=== PATIENT | male | born 1945 | race Caucasian/White ===

== ENCOUNTER 2022-12-25 13:44 | Outpatient (CLI) | payer MEDICARE, SELFPAY ==
--- NOTE | ~2022-12-25 | US_ITS ---
EXAMINATION: US arterial ankle brachial ind DATE: 12/25/2022 14:48 INDICATION: Peripheral arterial disease. TECHNIQUE: Segmental pressures and plethysmographic and Doppler waveforms of the brachial and lower e xtremity arteries were obtained. COMPARISON: None. FINDINGS: Right brachial artery pressure is 110 mm Hg. The left brachial artery pressure was not measured. The right ankle-brachial index (DIEGO) is 1.25 (normal >= 0.9-1.0). The right great toe-brachial index (TBI) is 0.62 (normal >= 0.65). Arterial Doppler waveforms are biphasic at the ankle. The left DIEGO is 1.37. The left TBI is 0.77. Arterial Doppler waveforms are biphasic at the ankle. IMPRESSION: 1. Mildly decreased right TBI and normal right DIEGO, consistent with right-sided arterial occlusive di sease. 2. No significant left-sided arterial occlusive disease. Reviewed, dictated and finalized at location E. TRIC SIGN WIRER IMPRESSION: 1. Mildly decreased right TBI and normal right DIEGO, consistent with right-sided arterial occlusive disease. 2. No significant left-sided arterial occlusive disease.
== END 2022-12-25 13:45 | disposition home or self-care (01) ==
PROVIDERS: PCP Internal Medicine; Visit Provider Internal Medicine
DX: I73.9 Peripheral vascular disease, unspecified (principal)
CPT/HCPCS: 93922

== ENCOUNTER 2024-09-15 10:33 | Outpatient (CLI) | payer MEDICARE, SELFPAY ==
--- NOTE | ~2024-09-15 | XR_ITS ---
EXAM: XR wrist RT min 3V, XR hand RT min 3V DATE: 09/15/2024 10:51 HISTORY: Fall onto outstretched hand, Rt. wrist pain x1 day . COMPARISON: None available. FINDINGS: Decreased mineralization. No fracture or dislocation. No lytic or blastic lesion. Scapholu cookie widening. Radial-lunate narrowing. Old ulnar styloid fracture. Chondrocalcinosis. Mild scattered degenerative changes. No erosion or periosteal change. Soft tissues within normal limits. 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 Old ulnar styloid fracture. 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 Reviewed, dictated and finalized at location K. 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 Old ulnar styloid fracture. 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
--- OUTSIDE RECORDS SUMMARY | 2024-09-15 10:39 | XMS_ITS ---
Author Name [facility] [place] [facility] [place] Address [address] [place] [address] Care Team Providers Care Briquette Maker Name Role Phone CAMERON DELGADO Primary Care Provider Unavailabl e Insurance Providers: All historical and current Section Date Range: From patient's date of to the date document was created. This section includes the names of all active insurance providers for the patient. Insurance Provider Type of Coverage Plan Name Start of Policy Coverage End of Policy Coverage Group Number Member ID Insurance Provider's Telephone Number Policy Rice's Name Patient's Relationship to Policy Rice [employer] [facility] (WNR) MEDICARE ADVANTAGE [facility] (WNR) Feb 15, 2023 [id number] FAREED [employer] O[employer] PATIENT [employer] [facility] (WNR) MEDICARE ADVANTAGE [facility] (WNR) Feb 15, 2023 [id number] FAREED [employer] O[employer] PATIENT Selected Encounter This section includes the information on record at [place] for the Encounter. Date/Time Encounter Type Encounter Description Reason Provider Source May 30, 2024 02:00 PM OFF/OP CONSLTJ NEW/EST HI 55 CIED DEVICES ICD-10-CM R00.0 Tachycardia, unspecified JOHN JONES IHDanielle Encounter Template Text not used by [facility] Assessments - Encounter Diagnoses This section includes the primary and secondary diagnoses documented for the Encounter. Date/Time Primary/Secondary Diagnosis Diagnosis Name Provider Source May 30, 2024 02:54 PM PRIMARY Tachycardia, unspecified JOHN JONES [facility] Plan of Treatment: Future Appointments (+ 6 months) and Future Tests (+/- 45 days) The Plan of Treatment section includes future care activities for the patient [facility] [place] [facility] This section includes future appointments and future orders which are active, pending or scheduled. Future Appointments This section includes appointments that were scheduled to occur 6 months from the date of the Encounter, up to a maximum of 20 appointments. The data comes from all [facility]. Appointment Date/Time Appointment Type Appointme nt Facility Name Oct 17, 2024 10:30 AM AMBULATORY - NONE [facility] Vital Signs: All taken on the encounter date This section contains inpatient and outpatient Vital Signs collected on the date of the Encounter. Date/Time Temperature Pulse Blood Pressure Respiratory Rate SP02 Pain Height Weight Body Mass Index Source May 30, 2024 02:16 PM 65 131/80 97 [facility] Encounter Notes: All associated encounter notes This section contains the clinical notes associated to the Encounter. Date/Time Encounter Note(s) Provider Source May 30, 2024 02:45 PM ELECTROPHYSIOLOGY CONSULT: LOCAL TITLE: CLINICAL CARDIAC ELECTROPHYSIOLOGY CONSULT [facility] STANDARD TITLE: ELECTROPHYSIOLOGY CONSULT DATE OF NOTE: MAY 30, 2024@14:45 ENTRY DATE: MAY 30, 2024@14:45:28 AUTHOR: JOHN JONES EXP COSIGNER: URGENCY: STATUS: COMPLETED CARDIAC ELECTROPHYSIOLOGY OUTPATIENT CONSULTATION HISTORY: The patient is a 79-year-old man with history of hypertension, hyperlipidemia, bifascicular block, and likely atrial tachycardia who was referred by Dr. Polanco. He first saw Dr. Polanco in 01/2024 for possible atrial fibrillation however this EKG that was referred to them was not atrial fibrillation. He had a recent stress testing which did not show any ischemia. He did tell Dr. Polanco that he reports occasional palpitations before me he states he does not really feel any palpitations. He had a Holter monitor done in 01/2024 which showed rare episodes of SVT AT lasting about a minute. These were asymptomatic. Most of symptom his symptoms were sinus rhythm. He then saw Dr. Polanco in 04/2024 and the EKG from that visit was personally reviewed and is most consistent with atrial tachycardia at 125 bpm though sinus tachycardia cannot be ruled out. A beta-latesha was started at that time. Since that time he has done well. He denies any palpitations to me and is able to do his ADLs without any problems. His EKG today shows sinus rhythm with right bundle branch block and a left anterior fascicular block. He denies any syncope or presyncope. ROS- Unless otherwise stated, all ROS has been reviewed and is negative for presenting complaint. CURRENT MEDICATIONS: Active Outpatient Medications (excluding Supplies): Issue Date Status Last Fill Active Outpatient Medications Refills Expiration 1) LISINOPRIL 40MG TAB Qty: 45 for 90 days Sig: ACTIVE Issue: 10/15/23 TAKE ONE-HALF TABLET BY MOUTH ONCE A DAY Refills: 1 Last : 04/05/24 *NOTE DOSE DECREASE* Expr : 10/15/24 Indication: FOR HIGH BLOOD PRESSURE 2) METOPROLOL SUCCINATE 50MG SA TAB Qty: 45 for ACTIVE Issue: 04/21/24 90 days Sig: TAKE ONE-HALF TABLET BY MOUTH Refills: 3 Last : 04/23/24 ONCE A DAY SWALLOW WHOLE, DO NOT CRUSH OR Expr : 04/22/25 CHEW (TABLETS MAY BE CUT IN HALF). Indication: FOR PALPITATIONS 3) ROSUVASTATIN CA 10MG TAB Qty: 45 for 90 days ACTIVE Issue: 01/21/24 Sig: TAKE ONE-HALF TABLET BY MOUTH EVERY Refills: 2 Last : 04/18/24 EVENING Expr : 01/21/25 Indication: FOR HIGH CHOLESTEROL 4) SILDENAFIL CITRATE 100MG TAB Qty: 9 for 90 ACTIVE Issue: 03/17/24 days Sig: TAKE ONE-HALF TABLET BY MOUTH ONE Refills: 0 Last : 03/26/24 HOUR PRIOR TO SEXUAL ACTIVITY (TAKE 60 Expr : 06/15/24 MINUTES PRIOR TO SEXUAL ACTIVITY) - LIMIT 6 DOSES PER 30 DAYS Indication: FOR ERECTILE DYSFUNCTION Start Date Active Non-VA Medications Status Stop Date 1) Non-VA ASPIRIN 81MG EC TAB SiMG BY ACTIVE MOUTH ONCE A DAY 2) Non-VA BETAMETHASONE DIPROPIONATE 0.05% ACTIVE CREAM Sig: SPARINGLY TO AFFECTED AREA(S) THREE TIMES A DAY NEEDED 3) Non-VA CETIRIZINE HCL 10MG TAB SiMG BY ACTIVE MOUTH ONCE A DAY NEEDED 4) Non-VA CHOLECALCIF 25MCG (D3-1,000UNIT) TAB ACTIVE SiMCG BY MOUTH ONCE A DAY 8 Total Medications Medication List Reconciliation: Current medication list was reviewed with the patient and/or caregiver and compared to current list of medications in [facility]. The medicaton list was updated to reflect any changes. The importance of medication managment was explained and patient and/or caregiver was receptive and verbalized understanding. Allergies:DEMEROL, CONTRAST MEDIA EXAM: Vital Signs: Pulse: 65 (05/30/2024 14:16) BP: 131/80 (05/30/2024 14:16) RESP: 18 (04/21/2024 13:19) G- Patient A&Ox3, NAD DATA: 05/2024 EKG-sinus rhythm, right bundle branch block, left anterior fascicular block 04/2024 EKG-personally reviewed, likely atrial tachycardia at 125 bpm due to P wave morphology, cannot rule out sinus tachycardia 02/07 holter: Normal sinus rhythm with RBBB at baseline 5 patient triggers but no symptoms reported. These were associated with sinus tachycardia, PVC. 5% PVC burden including NSVT's longest upto 3 beats. Short runs of SVT, longest episode lasting 165 beats at 135 bpm No long pauses. Stress Test 01/2024: Reviewed with patient today. ECG without diagnostic ischemia. Nuclear MPI: 1. Small severe partially reversible defect in the apex and distal inferior wall which appears better on prone images demonstrating normal contractility. This is favored to represent artifact versus apical thinning, rather than infarct. Cannot completely exclude a small area of ischemia in the distal inferior wall. 2. The findings in the proximal to mid inferior wall most likely represent diaphragmatic attenuation. Cannot completely exclude a small area of ischemia. 3. Normal LVEF of 62%. ECHO 01/2024: Normal systolic function, biatrial enlargement, no significant valvular disease. I reviewed his EKG at his 05/09 clinic visit which shows sinus vs atrial tachycardia (more likely given p wave morphology) at 125 bpm. Labs reviewed ASSESSMENT/PLAN: The patient is a 79-year-old man a history of hypertension, hyperlipidemia, bifascicular block, and likely paroxysmal atrial tachycardia that is relatively asymptomatic. He has done very well since especially since starting the beta- latesha. The rate of the atrial tachycardia is about 125 bpm and given this I do not feel he needs anticoagulation. However if he develops A-fib, he would obviously need to be started on it. Given the asymptomatic nature and his normal EF I do not think we need to pursue this further unless symptoms change or his rhythm changes. He will continue his metoprolol and he will follow-up with electrophysiology as needed. I do not feel he needs further Holter monitoring given the brevity of his symptoms and his monitor in January and his lack of symptoms. Thank you for letting me participate in the case of this very pleasant patient. Please contact me if you have any questions. John Jones M.D. Clinical Cardiac Electrophysiology This note was transcribed using voice detection software. Please excuse any errors. Health Maintenance All patients are counseled on the risks of smoking at every visit including patients with no history of smoking in order to dissuade them from starting the use of tobacco products; former smokers to minimize recidivism of nicotine dependence; and current smokers in an effort to help them cease the use of nicotine products. Where relevant [age between 50-60-years and history of smoking], we and/or the PCP will obtain an abdominal ultrasound to screen for the possibility of an abdominal aortic aneurysm and ABIs to screen for occult PAD. When completed, the results will be found in [facility]. Where relevant all echocardiograms (including transthoracic and transesophogeal echocardiograms), laboratory results, imaging results and procedure results that have been ordered have results communicated to the patient by myself, surrogate and/or the PCP. When completed, the results will be in the appropriate area in [facility] or [facility]. # HEALTH PROMOTION/HEALTH MAINTENANCE & EDUCATION DISEASE: Discussed treatment options & counseled on exacerbating factors. # DIAGNOSTIC TESTING AND LABORATORY DATA: Pertinent labs and diagnostic tests (both normal and abnormal) are included above and were reviewed and discussed with the patient within 7-days of the test and during this visit. - DISEASE: Coordinated care; discussed treatment options, & counseled on ` exacerbating factors. - Encouraged participation in regular exercise program 3-5 days/week - Maximize risk factor reduction & lifestyle modifications i.e. BP <130/80 and LDL goal <70 - Discussed at length about lifestyle modifications in regard to diet, exercise, and medication compliance. -Assessed smoking habits and whether actively using tobacco products or a past history of nicotine dependence, smoking cessation strategies were reinforced. - In patients with a history of CHF, HAYDER/ARB use is considered and held when contraindications such as allergies, renal function preclude use. If not mentioned in the above note, these assessments are detailed in prior cardiology notes. The patient verbalized understanding of information regarding: labs, meds, and plans for care. Reinforcement is indicated. # MEDICATION RECONCILIATION: - All cardiac medications were reconciled during the visit. - All patients with an EF </= 40% are considered for Hayder inhibitors or ARBs except when contraindicated due to intolerance/allergy, hypotension, or renal disease. Documentation is found in the historical record if not repeated in this note. - All patients with an EF </= 40% are considered for beta blockers and aspirin unless contraindicated due to intolerance/allergy, hypotension, bradycardia, or bleeding risk. Documentation is found in the historical record if not repeated in this note. - Anticoagulation therapy was discussed with all patients in the setting of atrial flutter/fibrillation and held in cases where the complications of bleeding (e.g., fall risk) outweighs the risk of stroke. All patients on anticoagulation medications are counseled on bleeding risks and the warning signs of a stroke or TIA. - Except where mentioned or restricted, the PCP may renew the cardiac medications. - Other listed profile meds will continue as directed by the PCP (primary provider). Thank you for allowing us to participate in this patient's care. Total time spent = 60 minutes /es/ JOHN JONES MD CLINICAL CARDIAC BULLET MAKER Signed: 05/30/2024 14:54 JOHN JONES [facility]
--- OUTSIDE RECORDS SUMMARY | 2024-09-15 10:39 | XMS_ITS | Continuity of Care Document ---
Author Organization [facility] Address [address] [place] [address] Phone Care Team Providers Care Nanotechnologist Name Role Phone Opal PAREKHHADNY CUNNINGHAM, [place] Unavailable Unavailab le Allergies, Adverse Reactions, Alerts Substance Reaction Status Criticality No Known Allergies Active No Inform ation Medications Medication Instructions Dosage Effective Dates (start - stop) Status Comments Keflex 500 mg capsule take 1 tab po Q 8 hours - Active aspirin 81 mg tablet,delayed release take 1 tablet by oral route every day 81 MG - Active Boostrix Tdap 2.5 Lf unit-8 mcg-5 Lf/0.5 mL intramuscular syringe - Active lisinopril 30 mg tablet - Ac tive ketoconazole 2 % topical cream - Active mupirocin 2 % topical ointment - Active azithromycin 250 mg tablet - Active benzonatate 100 mg capsule - Active fluticasone 50 mcg/actuation nasal spray,suspension - Active betamethasone, augmented 0.05 % topical ointment - Active hydrocodone 7.5 mg-acetaminophen 325 mg tablet - Active meloxicam 15 mg tablet - Act ok cyclobenzaprine 10 mg tablet - Active lisinopril 20 mg tablet - Ac tive Zyrtec 10 mg capsule - Active Benadryl 25 mg capsule take 2 capsule by oral route every 4 - 6 hours as needed 50 MG - Active Procedures Procedure Date X-ray Exam Hip Unilat With Pelvis When P erf 2-3 View Office/outpatient visit,[place] 2018 Office/outpatient visit,[place] 2018 X-ray Exam Hip Unilat With Pelvis When P erf 2-3 View Global/Postop followup visit X-ray Exam Hip Unilat With Pelvis When P erf 2-3 View Global/Postop followup visit X-ray Exam Hip Unilat With Pelvis When P erf 2-3 View Office/outpatient visit,[place] 2018 Advance Directives Directive Yes / No Effective Date File Name No Information Encounters Encounter Description Practice Location Reason(s) For Visit Diagnoses Date Provider Providers Copied on Encounter Office/outpat ient visit,[place] [facility], [address], [id number], [phone] [employer] [facility] Right Hip (chief complaint) Presence of right artificial hip joint 9 Opal Onofre. [facility] [address], [id number] , . tel: [phone] Referring Provider: [place] Joe, [facility] [address], [address]. [phone] Office/outpat ient visit,[place] [facility], [address], [id number], [place] [phone] [employer] [facility] Right Hip (chief complaint) Presence of right artificial hip joint 9 Opal Onofre. [address] [place] [address], [id number] , [place]. tel: [phone] Referring Provider: [place] Joe, [address], [address]. tel:[phone] [employer] [facility], [address], [id number], [place] tel:[phone] [facility] right hip (chief complaint) Presence of right artificial hip joint 9 Opal Onofre. [address] [facility], [place] [address], [place], [place], [id number] , [place]. tel: [phone] Referring Provider: [place] Joe, [address] [facility] [address] [facility], [place], [address]. tel:[phone] [facility], [address] [place] [address], [place], [place], [id number], [place] tel:[phone] [facility] Presence of right artificial hip joint 9 Opal Onofre. [address] [facility], [place] [address], [place], [place], [id number] , [place]. tel: [phone] [facility], [address], [id number], [place] tel:[phone] [facility] right hip (chief complaint) Presence of right artificial hip joint 9 Opal Onofre. [address] [facility], [place] [address], [place], [place], [id number] , [place]. tel: [phone] Referring Provider: [place] Joe, [address] [facility] [address] [facility], [place], [address]. 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 [place] [address], [place] [address], [place], [place], [id number] , [place]. tel: [phone] Office/outpat ient visit,new, mod [facility], [address], [id number], [place] [phone] [facility] Hip Implant Squeking Rt Hip (chief complaint) Pain in right hipPresence of right artificial hip jointMech loosening of internal right hip prosthetic joint, subs 9 Joon Hemphill er. [address] [facility], [address], [place], [place], [id number] , [place]. tel: [phone] Referring Provider: Jas Dupree MD D, [address] [facility] [address], [place], [address]. tel:[phone] [facility], [address] [facility] [address], [place], [id number], [place] tel:[phone] [facility] No Information 9 Joon Hemphill er. [address] [facility], [address], [place], [place], [id number] , [place]. tel: [phone] Family History Family Member Type Diagnosis Age At Onset No Information Payers Payer name Insurance type Covered republican ID Authortelmaa tifransisca(s) Medicare [place] WPS Part B [id number] [facility] [id number] Social History Type Description Quantity Date Captured Comments Alcohol Use Details Unknown Caffeine Use Details Unknown Tobacco Use Status Current non-smoker Smoking Status Unknown if ever smoked Non-Smoking Tobacco Use Details : No Details Available : No Details Available Sex Male Vital Signs Date / Time: Height Weight BMI Pulse Rate Blood Pressure Temperature Respiratory Rate Body Surface Area Head Circumference Head Circ. Percentile Wt./Dewayne. Percentile BMI percentile Pulse Ox Inhaled Ox 9:52 AM 65.00 in 96.162 kg (212.00 lbs) 35.2 8 kg/m jazminer (2) Chief Complaint And Reason For Visit From encounter dated '09/19/2018 10:20'. Right Hip (chief complaint). Description: Brian is a pleasant 73 year old gentleman who presents to the office today for ongoing follow-up of his right posterior total hip arthroplasty revision, date of surgery 04/29/2018. He is finished with physical therapy and feels that it went well. He does practice the exercises that he was taught in physical therapy on a semi regular basis. He has had complete resolution of the suture abscess at the incision site. He endorses no pain the right hip at today's office visit. He does have pain in the right buttock, that he indicates is baseline, that is rated at a 3/10 with a dull, aching, intermittent nature that is well manged with the use of over the counter pain medications and rest. He is ambulating without assistive device at today's visit. Reason For Referral Reason For Referral No Information Plan Of Treatment Date Type Action Status Referral Ordered: X-ray Exam Hip Unilat With Pelvis When Perf 2-3 View RT hip ordered Referral Ordered: X-ray Exam Hip Unilat With Pelvis When Perf 2-3 View RT ordered History Of Present Illness Encounter Date Complaint History Of Prese nt Illness Right Hip Brian is a pleasa nt 73 year old gentleman who presents to the office today for ongoing follow-up of his right posterior total hip arthroplasty revision, date of surgery 04/29/2018. He is finished with physical therapy and feels that it went well. He does practice the exercises that he was taught in physical therapy on a semi regular basis. He has had complete resolution of the suture abscess at the incision site. He endorses no pain the right hip at today's office visit. He does have pain in the right buttock, that he indicates is baseline, that is rated at a 3/10 with a dull, aching, intermittent nature that is well manged with the use of over the counter pain medications and rest. He is ambulating without assistive device at today's visit. Right Hip Richie is a plea mallika 73 year old female who presents to the office today for skin check of his right posterior total hip arthroplasty revision, date of surgery 04/29/2018. He indicates that he has developed a spot on his incision and is concerned. Denies drainage, redness, or pain at the incision site. Denies pain in the lateral thigh and groin. He is having pain in the buttocks that he attributes to his ongoing lumbago with sciatic nerve involvement. He is finished with physical therapy and feels that it went very well. He is ambulating without assistive device at today's office visit. right hip Richie is a javier tena 73-year-old gentleman who presents to the office today for evaluation of his right posterior total hip arthroplasty revision, date of surgery 04/29/2018. He is maintaining posterior hip precautions, and is questioning how long he needs to maintain those. He is participating in physical therapy and feels that it is going very well. He endorses having no pain while at rest, and a pain level of 4 out of 10 with a dull, intermittent nature exacerbated by certain movements, the pain is located at the lateral incision area, and well-managed with the use of positional changes, massage, and tmpw-zdp-dwcbuzc pain medications. He is ambulating with the use of a walker at today's office visit, and accompanied to the visit by his . 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 He has had a 25% weightbearing restriction in the right lower extremity, and indicates compliance with this restriction. He has been participating in physical therapy, and feels that it is going very well. He is taking aspirin 81 mg twice per day for DVT prophylaxis. He is maintaining posterior hip precautions. He endorses having no pain at rest, but indicates that he does have pain that will go up to a 7 or 8 at the highest with overexertion and physical therapy, but usually maintains a 324 with ambulation, and is stabbing and intermittent in nature starting in the buttocks radiating around the lateral thigh and into the mid anterior thigh. Denies groin pain at this time. Denies fevers, chills, malaise, or generalized feelings of illness. He is ambulating with a walker at today's visit. Hip Implant Squeking Rt He aparicio is a 73-year-old gentleman who presents today for evaluation of his right hip replacement. He had recently undergone a head and liner exchange by Dr. padilla at [facility]. His surgery occurred on June 30, 2017. He had some ostial lysis surrounding his Violeta hip system. He underwent a head and liner exchange with a Trilogy acetabular liner of 40 mm for a 60 mm outer diameter cup. He also underwent a versus femoral head, 40 mm tall, 14 taper, +3.5 neck length. He had been doing well but then he developed some squeaking in his hip. He reports his pain as a 2/10. He has some popping and grinding. His pain is worse with bending climbing stairs descending stairs, sitting, standing and walking. Pain is better with resting. He is 5 foot 5 and weighs 212 pounds. He is had bilateral total hip replacements done some time ago. He has no history of infection in the hip. He reports uncomplicated surgery with no wound healing or antibiotics or washouts required. Functional Status Date Functional Assessmen t No Information Instructions Date Instruction Additional Infor jose juan Verbal consent was o btained for removal of sutures. The patient was standing for the procedure. The sutures were removed without incident, and the procedure was well tolerated by the patient. Related to Presence of right artificial hip joint Assessments Type Assessment Date assessment Presence of right artificial hip joint impression Radiologic review an d physical exam demonstrate a stable right total hip arthroplasty revision, date of surgery 04/29/2018. No suspicion of mechanical loosening or septic joint at this time. The patient has no restrictions to his activities, but was advised that extremes of position could cause him a dislocation event, and those positions were discussed with him. The patient was advised to maintain an adequate level of physical activity. He may use rest, elevation, ice, and hbvs-esp-suagveg nonsteroidal anti-inflammatory type medications and pvmu-xsq-rhkxsdu pain medications for pain and inflammation control in the right hip. He was advised to use compression stockings for edema control in the bilateral lower legs, and advised to follow-up with his primary care physician for evaluation and treatment of bilateral lower extremity edema. No suspicion of DVT at this time. The patient was advised that for the next 2 years he will need an antibiotic prior to any dental visits, and our office will gladly call those in for him. The patient demonstrates appropriate understanding of the diagnosis and plan of care at this time and we will see him back in 6 months Patient Care Teams Name Effective Dates (start - stop) Status Members No Information
--- OUTSIDE RECORDS SUMMARY | 2024-09-15 10:39 | XMS_ITS | Clinical Summary ---
Author Organization [facility] Address [address] [place] [address] Phone Care Team Providers Care Contact Lens Fitter Name Role Phone Avtar Liu MD Primary Care Provider [phone] Allergies Active Allergy Reactions Criticality Noted Date Comments Iodine Unknown 05/07/2018 Medications Lisinopril 30 MG Tablet Take 30 mg by mouth daily. Active Ibuprofen 200 MG Capsule Take 1 Cap by mouth every 6 hours as needed for Pain. Active diphenhydrAMINE (BENADRYL) 25 MG Tablet Take 50 mg by mouth nightly as needed for Sleep. Active cetirizine (ZYRTEC) 10 MG Tablet Take 10 mg by mouth Daily as needed for Allergies. Active Aspirin 81 MG Tablet Take 81 mg by mouth daily. Active Social History Tobacco Use Types Packs/Day Years Used Date Smoking Tobacco: Never Assessed Sex and Gender Information Value Date Recorded Sex Assigned at Not on file Legal Sex Male 9:42 AM CDT Gender Identity Not on file Sexual Orientation Not on file Last Filed Vital Signs Vital Sign Reading Time Taken Comments Blood Pressure 128/70 05/30/2018 9:19 AM CDT Pulse 88 05/30/2018 9:19 AM CDT Temperature 36.7 C (98.1 F) 05/30/2018 9:19 AM CDT Respiratory Rate 16 05/30/2018 9:19 AM CDT Oxygen Saturation 98% 05/30/2018 9:19 AM CDT Inhaled Oxygen Concentration - - Weight 92.1 kg (203 lb) 05/19/2018 1:11 PM CDT Height 165.1 cm (5' 5) 05/10/2018 2:20 PM CDT Body Mass Index 33.78 05/10/2018 2:20 PM CDT Plan of Treatment Health Maintenance Due Date Last Done Comments Hepatitis C Virus (HCV) Screening 1945 TdaP Immunization 1945 Pneumococcal Immunization (5 0+ years) (1 of 1 - PCV) 1997 Zoster Immunization (1 of 2) 1997 Respiratory Syncytial Virus (RSV) Immunization (Adult) (1 - 1-dose 75+ series) 2022 SARS-COV-2 Immunization (4 - season) 2023 11/13/2020, 04/10/2020, 03/20/2020 Influenza Immunization (#1) 2024 12/10/2016 Hepatitis B Immunization Aged Out No longer eligible based on patient's age to complete this topic Human Papillomavirus (HPV) Immunization Aged Out No longer eligible b ased on patient's age to complete this topic Meningococcal Immunization (ACWY) Aged Out No longer eligible b ased on patient's age to complete this topic Rotavirus Immunization Aged Out No lo nger eligible based on patient's age to complete this topic Insurance MEDICARE [facility] Advance Directives * Full Code (Latest Code Status on File) Date Activated Date Inactivated Comments 05/12/2018 8:23 AM Care Teams Contact Lens Fitter Relationship Specialty [place] [address] [place] [address] [place] [address] PCP - General Family Medicine 05/06/18
--- OUTSIDE RECORDS SUMMARY | 2024-09-15 10:39 | XMS_ITS | Clinical Summary ---
Author Organization [facility] Address [address] [place] [address] Care Team Providers Care Funeral Professional Name Role Phone Bienvenido Chris MD Primary Care Provider [phone] Allergies Active Allergy Reactions Criticality Noted Date Comments Iodinated Contrast Media Unknown 05/21/2016 Meperidine Unknown 05/21/2016 Medications No known medications Social History Tobacco Use Types Packs/Day Years Used Date Smoking Tobacco: Never Smokeless Tobacco: Never Tobacco Cessation:Counseling Given: Not Answered Alcohol Use Standard Drinks/Week Comments Not Currently 23.3 (1 standard dri nk = 0.6 oz pure alcohol) drinks a fith of burbin a week. 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 Gender Identity Not on file Sexual Orientation Not on file Last Filed Vital Signs Vital Sign Reading Time Taken Comments Blood Pressure 120/70 05/21/2016 4:06 PM CDT Pulse 68 05/21/2016 4:06 PM CDT Temperature - - Respiratory Rate - - Oxygen Saturation - - Inhaled Oxygen Concentration - - Weight 86.2 kg (190 lb) 02/04/2024 10:06 AM MACHINE FOLDER Height 165.1 cm (5' 5) 02/04/2024 10:06 AM MACHINE FOLDER Body Mass Index 31.62 02/04/2024 10:06 AM MACHINE FOLDER Plan of Treatment Health Maintenance Due Date Last Done Comments Hepatitis C 1963 Annual Medicare Wellness Visit 02/12/2012 COVID-19 Vaccine ( season) 2024 12/04/2023, 12/07/2022, 02/15/2022, Additional history exists DTaP, Tdap and Td Vaccines (2 - Td or Tdap) 06/13/2030 06/13/2020, 08/15/2005 Zoster Vaccines Completed 12/20/2020, 05/17, 05/21/2011 Pneumococcal Vaccine: 50+ Years Completed 06/24/2021, 12/08/2019 RSV Immunization or 60+ Years Completed 05/04/2023 Meningococcal B Vaccine Aged Out No l onger eligible based on patient's age to complete this topic Meningococcal Vaccine Aged Out No janice colton eligible based on patient's age to complete this topic RSV Immunizations Under 20 Months Aged Out No longer eligible based on patient's age to complete this topic Insurance [employer] Care Teams Funeral Professional Relationship Specialty Start Date End Date Bienvenido Chris MD [address] [place] [address] PCP - General INTERNAL MEDICINE 11/09/22
--- OUTSIDE RECORDS SUMMARY | 2024-09-15 10:39 | XMS_ITS | Continuity of Care Document ---
Author Name [facility] Organization [facility] Care Team Providers Care Axle Inspector Name Role Phone [facility] Unavailable Unavailable Problems Combined list of problems from Department of Defense and Veterans Affairs facilities. It does not include entries that were removed or entered in error. Problem Status Onset Date Problem Type Date of Resolution Comments Source Abnormal ECG Active Condition [facility] Allergic Rhinitis ([facility] [id number]) Active Condition [facility] Chronic Kidney Disease, Unspecified (ICD-9-CM 585.9) Active Condition [facility] Chronic sinusitis (ICD-9-CM 473.9) Active Condition [facility] Erectile Dysfunction ([facility] [id number]) Active Condition [facility] History of chronic renal impairment Active Condition [facility] History of nephrolithiasis Active Condition [facility] HTN - Hypertension (SCT [id number]) Active Condition [facility] Hyperlipidemia Active Condition [facility] Hypertension * (ICD-9-CM 401.9) Active Condition [facility] Impaired glucose tolerance Active Condition [facility] Obesity ([facility] [id number]) Active Condition [facility] Obesity * (ICD-9-CM 278.00) Active Condition [facility] Past history of procedure Active Condition Dec 07, 2019 Entered By: ENRICO RASMUSSEN Comment: 1998 total right hip arthroplastyOct 2019 Entered By: ENRICO RASMUSSEN Comment: 2000 total left hip arthroplastyOct 2019 Entered By: ENRICO RASMUSSEN Comment: 1979 vasectomyOct 2019 Entered By: ENRICO RASMUSSEN Comment: lithotripsy, snare removal renal stonesOct 2019 Entered By: ENRICO RASMUSSEN Comment: 2017 right hip athroplasty revisionOct 2019 Entered By: ENRICO RASMUSSEN Comment: 2018 right hip arthroplasty revisionOct 2019 Entered By: ENRICO RASMUSSEN Comment: 2017 right ear non-melanoma skin cancer excision [facility] Vitamin D Deficiency ([facility] [id number]) Active Condition [facility] Diagnosis: ICD-10-CM R00.0 Tachycardia, unspecified Active Diagnosis [facility] Diagnosis: ICD-10-CM R94.31 Abnormal electrocardiogram [ECG] [EKG] Active Diagnosis [facility] Diagnosis: ICD-10-CM I48.91 Unspecified atrial fibrillation Active Diagnosis [facility] Diagnosis: ICD-10-CM I10 Essential (primary) hypertension Active Diagnosis [facility] Diagnosis: ICD-10-CM U07.1 COVID-19 Active Diagnosis [facility] Diagnosis: ICD-10-CM Z23 Encounter for immunization Active Diagnosis [facility] Medications Combined list of outpatient medications from Department of Defense and [facility] Affairs facilities.Medications provided include 1) outpatient medications from the last 15 months, and 2) patient-reported medications. Medication Details Route Status Patient Instructions Prescription Expires Prescription Number Last Dispense Date Ordering Provider Order Date Order Qty Source ASPIRIN 81MG TAB,EC TAKE ONE TABLET BY MOUTH ONCE A DAY ORAL ACTIVE VALERY,VICT OR 2019 [facility] ASPIRIN 81MG TAB,EC TAKE ONE TABLET BY MOUTH EVERY DAY ORAL ACTIVE ROSALINA TRINIDAD 2009 [facility] BETAMETHASO NE DIPROPIONAT E 0.05% CREAM,TOP APPLY SPARINGL Y TO AFFECTED AREA(S) THREE TIMES A DAY NEEDED [place] L ACTIVE PACE,VICT OR 2019 [facility] CETIRIZINE HCL 10MG TAB TAKE ONE TABLET BY MOUTH ONCE A DAY NEEDED ORAL ACTIVE PACE,VICT OR 2019 [facility] CHOLECALCIF EDUARDO 25MCG (1,000UNIT) TAB TAKE THREE TABLETS BY MOUTH ONCE A DAY ORAL ACTIVE PACE,VICT OR 2020 [facility] DIPHENHYDRA MINE HCL 50MG CAP TAKE 1 CAPSULE BY MOUTH AT BEDTIME NEEDED ORAL ACTIVE ROSALINA TRINIDAD 2009 [facility] LISINOPRIL 20MG TAB TAKE ONE AND ONE-HALF TABLETS BY MOUTH ONCE A DAY FOR HEART OR BLOOD PRESSURE ORAL DISCONT INUED BY CHANEL Luis 04/06/2024 [id number] BOLAND, TTLISA 2023 135 [facility] LISINOPRIL 20MG TAB TAKE ONE-HALF TABLET BY MOUTH DAILY ORAL ACTIVE ROSALINA TRINIDAD 2009 [facility] LISINOPRIL 40MG TAB TAKE ONE-HALF TABLET BY MOUTH ONCE A DAY FOR HIGH BLOOD PRESSURE *NOTE DOSE DECREASE * ORAL ACTIVE 10/15/2024 [id number] SMITH STERLING 2023 45 [facility] METOPROLOL SUCCINATE 50MG TAB,SA TAKE ONE-HALF TABLET BY MOUTH ONCE A DAY FOR PALPITAT IONS SWALLOW WHOLE, DO NOT CRUSH OR CHEW (TABLETS MAY BE CUT IN HALF). ORAL ACTIVE 04/22/2025 [id number] Pelon REY 2024 45 [facility] ROSUVASTATI N CA 10MG TAB TAKE ONE-HALF TABLET BY MOUTH EVERY EVENING FOR HIGH CHOLESTE ROL ORAL ACTIVE 01/21/2025 [id number] Pelon REY 2023 45 [facility] SILDENAFIL CITRATE 100MG TAB TAKE ONE-HALF TABLET BY MOUTH ONE HOUR PRIOR TO SEXUAL ACTIVITY FOR ERECTILE DYSFUNCT ION (TAKE 60 MINUTES PRIOR TO SEXUAL ACTIVITY ) - LIMIT 6 DOSES PER 30 DAYS ORAL ACTIVE 06/13/2025 [id number] SMITH STERLING 2024 9 [facility] SILDENAFIL CITRATE 100MG TAB TAKE ONE-HALF TABLET BY MOUTH ONE HOUR PRIOR TO SEXUAL ACTIVITY FOR ERECTILE DYSFUNCT ION (TAKE 60 MINUTES PRIOR TO SEXUAL ACTIVITY ) - LIMIT 6 DOSES PER 30 DAYS ORAL DISCONT INUED 06/15/2024 [id number] SMITH STERLING 2024 9 [facility] SILDENAFIL CITRATE 100MG TAB TAKE ONE-HALF TABLET BY MOUTH ONE HOUR PRIOR TO SEXUAL ACTIVITY FOR ERECTILE DYSFUNCT ION (TAKE 60 MINUTES PRIOR TO SEXUAL ACTIVITY ) - LIMIT 6 DOSES PER 30 DAYS ORAL DISCONT INUED 03/20/2024 [id number] SMITH STERLING 2023 9 [facility] SILDENAFIL CITRATE 100MG TAB TAKE ONE-HALF TABLET BY MOUTH ONE HOUR PRIOR TO SEXUAL ACTIVITY FOR ERECTILE DYSFUNCT ION (TAKE 60 MINUTES PRIOR TO SEXUAL ACTIVITY ) - LIMIT 6 DOSES PER 30 DAYS ORAL DISCONT INUED 01/13/2024 [id number] SMITH STERLING 2023 9 [facility] SILDENAFIL CITRATE 100MG TAB TAKE ONE-HALF TABLET BY MOUTH ONE HOUR PRIOR TO SEXUAL ACTIVITY FOR ERECTILE DYSFUNCT ION (TAKE 60 MINUTES PRIOR TO SEXUAL ACTIVITY ) - LIMIT 6 DOSES PER 30 DAYS ORAL DISCONT INUED 10/11/2023 [id number] ME KYA TTISA 2023 9 [facility] Allergies, Adverse Reactions, Alerts Combined list of allergies from Department of Defense and Veterans Affairs facilities. It does not include entries that were removed or entered in error. Substance Category Reaction Severity Reaction type Status Date Reported Comments Source CONTRAST MEDIA Propensity to adverse reactions to drug (finding) Eruption active 0 [facility] DEMEROL Propensity to adverse reactions to drug (finding) Bradycardia active 0 [facility] Immunizations Combined list of available immunizations from the Department of Defense and Veterans Affairs facilities. Immunization Series Date Given Administered By Site Reaction Lot Number CVX Code Drug Furniture Technician Status Comments Source RSV, BIVALENT, PROTEIN SUBUNIT RSVPREF, DILUENT RECONSTITUTED , 0.5 ML, PF 1 2023 KADY ÁLVAREZ LEFT DELTO ID [id number] 305 complet ed [facility] COVID-19 (PFIZER), MRNA, LNP-S, PF, GENI-SUCROSE, 30 MCG/0.3 ML (AGES 12+ YEARS) 1 2022 309 complet ed HISTORICA L INFORMATI ON - FROM OTHER REGISTRY, [facility] INFLUENZA VACCINE, QUADRIVALENT, ADJUVANTED 1 2022 205 complet ed HISTORICA L INFORMATI ON - FROM OTHER [facility], [facility] COVID-19 ([facility]), MRNA, LNP-S, BIVALENT, PF, 30 MCG/0.3 ML DOSE 5 2022 300 complet ed HISTORICA L INFORMATI ON - FROM OTHER REGISTRY, [facility] INFLUENZA, HIGH-DOSE, QUADRIVALENT 3 2021 197 complet ed HISTORICA L INFORMATI ON - FROM OTHER REGISTRY, [facility] INFLUENZA, UNSPECIFIED FORMULATION 2021 88 complet ed HISTORICA L INFORMATI ON - FROM PATIENT'S RECALL, [facility] COVID-19 ([facility]), MRNA, LNP-S, PF, 30 MCG/0.3 ML DOSE 4 2021 208 complet ed HISTORICA L INFORMATI ON - FROM PATIENT'S WRITTEN RECORD, Lot#: [id number] [facility] COVID-19 ([facility]), MRNA, LNP-S, PF, 30 MCG/0.3 ML DOSE, GENI-SUCROSE (AGES 12+ YEARS) 4 2021 217 complet ed HISTORICA L INFORMATI ON - FROM OTHER REGISTRY, [facility] PNEUMOCOCCAL CONJUGATE PCV20, POLYSACCHARID E [id number] CONJUGATE, ADJUVANT, PF 2021 NONE 216 complet ed Completed Series, [facility] ZOSTER RECOMBINANT 2 2020 187 complet ed [facility] COVID-19 ([facility]), MRNA, LNP-S, PF, 30 MCG/0.3 ML DOSE 3 2020 208 complet ed HISTORICA L INFORMATI ON - FROM OTHER REGISTRY, [facility] INFLUENZA, HIGH-DOSE, QUADRIVALENT 2 2020 197 complet ed HISTORICA L INFORMATI ON - FROM OTHER REGISTRY, [facility] COVID-19 ([facility]), MRNA, LNP-S, PF, 30 MCG/0.3 ML DOSE 3 2020 208 complet ed [facility] INFLUENZA, UNSPECIFIED FORMULATION 2020 88 complet ed [facility] TDAP 2020 115 complet ed [facility] ZOSTER RECOMBINANT 1 2020 187 complet ed [facility] COVID-19 ([facility]), MRNA, LNP-S, PF, 30 MCG/0.3 ML DOSE 2 2020 208 complet ed [facility] COVID-19 ([facility]), MRNA, LNP-S, PF, 30 MCG/0.3 ML DOSE 1 2020 208 complet ed [facility] INFLUENZA, UNSPECIFIED FORMULATION 2019 88 complet ed [facility] PNEUMOCOCCAL POLYSACCHARID E [id number] 2019 33 complet ed [facility] INFLUENZA, SEASONAL, INJECTABLE 1 2016 141 complet ed HISTORICA L INFORMATI ON - FROM OTHER REGISTRY, [facility] INFLUENZA, UNSPECIFIED FORMULATION 2011 88 complet ed Right Deltoid 0.5ml [facility] ZOSTER LIVE 2011 121 complet ed [facility] INFLUENZA, UNSPECIFIED FORMULATION 2010 88 complet ed Right Deltoid 0.5ml IM [facility] INFLUENZA, UNSPECIFIED FORMULATION 2009 88 complet ed Right Deltoid 0.5ml IM [facility] TD(ADULT) UNSPECIFIED FORMULATION 2005 139 complet ed [facility] Results Combined list of recent chemistry, hematology and other laboratory results from Department of Defense and Veterans Affairs, ranging from 15 months to all on record, depending upon the facility. Order Name Results Value Reference Range Date Interpretation Specimen Comments Source LIPID PANEL (STL) CHOLESTEROL [MASS/VOLUM E] IN SERUM OR PLASMA 115 mg/dL 0 - 200 04/26 Specimen Type: PLASMA No comment entered. Ordering Provider: MAMI REY Report Released Date/Time: Apr 21, 2024 02:01 PM Reporting Lab: [facility] [address] [facility] [address] Performing Lab: [address] [address] [facility] LIPID PANEL (STL) TRIGLYCERID E [MASS/VOLUM E] IN SERUM OR PLASMA 66 mg/dL 0 - 150 04/26 Specimen Type: PLASMA No comment entered. Ordering Provider: MAMI REY Report Released Date/Time: Apr 21, 2024 02:01 PM Reporting Lab: [address] [address] Performing Lab: [address] [address] [facility] LIPID PANEL (STL) CHOLESTEROL IN LDL [MASS/VOLUM E] IN SERUM OR PLASMA BY CALCULATION 51 mg/dL 04/26 Specimen Type: PLASMA No comment entered. Ordering Provider: MAMI REY Report Released Date/Time: Apr 21, 2024 02:01 PM Reporting Lab: [address] [address] Performing Lab: [address] [address] [facility] LIPID PANEL (STL) CHOLESTEROL IN HDL [MASS/VOLUM E] IN SERUM OR PLASMA 51 mg/dL 40 04/26 Specimen Type: PLASMA No comment entered. Ordering Provider: MAMI REY Report Released Date/Time: Apr 21, 2024 02:01 PM Reporting Lab: [address] [address] Performing Lab: [address] [address] [facility] HEPATIC FUNTION PANEL (STL) PROTEIN [MASS/VOLUM E] IN SERUM OR PLASMA 7.2 g/dL 6 - 8.6 04/26 Specimen Type: PLASMA No comment entered. Ordering Provider: MAMI REY Report Released Date/Time: Apr 21, 2024 04:14 PM Reporting Lab: [address] [address] Performing Lab: [place] [address] [facility] [phone] [place] [address] HEPATIC FUNTION PANEL (STL) ALBUMIN [MASS/VOLUM E] IN SERUM OR PLASMA 4.2 g/dL 3.4 - 5 04/26 Specimen Type: PLASMA No comment entered. Ordering Provider: MAMI REY Report Released Date/Time: Apr 21, 2024 04:14 PM Reporting Lab: [place] [address] [address] Performing Lab: [address] HEPATIC FUNTION PANEL (STL) BILIRUBIN.T OTAL [MASS/VOLUM E] IN SERUM OR PLASMA 0.7 mg/dL 0.2 - 1.2 04/26 Specimen Type: PLASMA No comment entered. Ordering Provider: MAMI REY Report Released Date/Time: Apr 21, 2024 04:14 PM Reporting Lab: [place] [phone] Performing Lab: [place] [address] [address] [facility] HEPATIC FUNTION PANEL (STL) ALKALINE PHOSPHATASE [ENZYMATIC ACTIVITY/VO LUME] IN SERUM OR PLASMA 67 U/L 40 - 150 04/26 Specimen Type: PLASMA No comment entered. Ordering Provider: MAMI REY Report Released Date/Time: Apr 21, 2024 04:14 PM Reporting Lab: [place] [phone] Performing Lab: [address] [address] [facility] HEPATIC FUNTION PANEL (STL) ASPARTATE AMINOTRANSF ERASE [ENZYMATIC ACTIVITY/VO LUME] IN SERUM OR PLASMA 20 U/L 5 - 34 04/26 Specimen Type: PLASMA No comment entered. Ordering Provider: MAMI REY Report Released Date/Time: Apr 21, 2024 04:14 PM Reporting Lab: [address] [address] Performing Lab: [address] [address] [facility] HEPATIC FUNTION PANEL (STL) ALANINE AMINOTRANSF ERASE [ENZYMATIC ACTIVITY/VO LUME] IN SERUM OR PLASMA 13 U/L 8 - 40 04/26 Specimen Type: PLASMA No comment entered. Ordering Provider: MAMI REY Report Released Date/Time: Apr 21, 2024 04:14 PM Reporting Lab: [address] [address] Performing Lab: [phone] [place] [address] HEPATIC FUNTION PANEL (STL) BILIRUBIN.C ONJUGATED [MASS/VOLUM E] IN SERUM OR PLASMA 0.3 mg/dL 0 - 0.5 04/26 Specimen Type: PLASMA No comment entered. Ordering Provider: MAMI REY Report Released Date/Time: Apr 21, 2024 04:14 PM Reporting Lab: [address] [address] Performing Lab: [address] [phone] [place] [address] BASIC METABOLIC PANEL CREATININE [MASS/VOLUM E] IN SERUM OR PLASMA 0.90 mg/dL 0.7 - 1.3 10/27 Specimen Type: PLASMA Comment: No hemolysis noted. Ordering Provider: SMITH OSPINA Report Released Date/Time: Oct 22, 2023 03:53 PM Reporting Lab: [address] [address] Performing Lab: [address] [phone] [place] [address] BASIC METABOLIC PANEL UREA NITROGEN [MASS/VOLUM E] IN SERUM OR PLASMA 17.1 mg/dL 9.0 - 25.0 10/27 Specimen Type: PLASMA Comment: No hemolysis noted. Ordering Provider: SMITH OSPINA Report Released Date/Time: Oct 22, 2023 03:53 PM Reporting Lab: [address] [address] Performing Lab: [address] [phone] [place] [address] BASIC METABOLIC PANEL GLUCOSE [MASS/VOLUM E] IN SERUM OR PLASMA 98 mg/dL 72 - 99 10/27 Specimen Type: PLASMA Comment: No hemolysis noted. Ordering Provider: SMITH OSPINA Report Released Date/Time: Oct 22, 2023 03:53 PM Reporting Lab: [address] [address] Performing Lab: [address] [address] [facility] BASIC METABOLIC PANEL SODIUM [MOLES/VOLU ME] IN SERUM OR PLASMA 142 meq/L 136 - 145 10/27 Specimen Type: PLASMA Comment: No hemolysis noted. Ordering Provider: SMITH OSPINA Report Released Date/Time: Oct 22, 2023 03:53 PM Reporting Lab: [address] [address] Performing Lab: [address] [address] [facility] BASIC METABOLIC PANEL POTASSIUM [MOLES/VOLU ME] IN SERUM OR PLASMA 4.3 meq/L 3.5 - 5 10/27 Specimen Type: PLASMA Comment: No hemolysis noted. Ordering Provider: SMITH OSPINA Report Released Date/Time: Oct 22, 2023 03:53 PM Reporting Lab: [address] [address] Performing Lab: [address] [address] [facility] BASIC METABOLIC PANEL CHLORIDE [MOLES/VOLU ME] IN SERUM OR PLASMA 109 meq/L 98 - 107 10/27 H Specimen Type: PLASMA Comment: No hemolysis noted. Ordering Provider: SMITH OSPINA Report Released Date/Time: Oct 22, 2023 03:53 PM Reporting Lab: [address] [address] Performing Lab: [address] [address] [facility] BASIC METABOLIC PANEL CARBON DIOXIDE, TOTAL [MOLES/VOLU ME] IN SERUM OR PLASMA 26 meq/L 22 - 31 10/27 Specimen Type: PLASMA Comment: No hemolysis noted. Ordering Provider: SMITH OSPINA Report Released Date/Time: Oct 22, 2023 03:53 PM Reporting Lab: [address] [address] Performing Lab: [address] [address] [facility] BASIC METABOLIC PANEL CALCIUM [MASS/VOLUM E] IN SERUM OR PLASMA 9.2 mg/dL 8.4 - 10.4 10/27 Specimen Type: PLASMA Comment: No hemolysis noted. Ordering Provider: SMITH OSPINA Report Released Date/Time: Oct 22, 2023 03:53 PM Reporting Lab: [address] [address] Performing Lab: [address] [address] [facility] BASIC METABOLIC PANEL GLOMERULAR FILTRATION RATE/1.73 SQ M.PREDICTED [VOLUME RATE/AREA] IN SERUM, PLASMA OR BLOOD BY CREATININE- BASED FORMULA (CKD-EPI 2020) 88.5 60 10/27 Specimen Type: PLASMA Comment: No hemolysis noted. Ordering Provider: SMITH OSPINA Report Released Date/Time: Oct 22, 2023 03:53 PM Reporting Lab: [address] [address] Performing Lab: [facility] [address] [address] [facility] COMPREHEN SIVE METABOLIC PANEL CREATININE [MASS/VOLUM E] IN SERUM OR PLASMA 1.45 mg/dL 0.7 - 1.3 10/14 H Specimen Type: PLASMA Comment: No hemolysis noted. Ordering Provider: SMITH OSPINA Report Released Date/Time: Oct 15, 2023 09:55 AM Reporting Lab: [facility] [address] [place] [address] Performing Lab: [address] [phone] [place] [address] COMPREHEN SIVE METABOLIC PANEL UREA NITROGEN [MASS/VOLUM E] IN SERUM OR PLASMA 27.2 mg/dL 9.0 - 25.0 10/14 H Specimen Type: PLASMA Comment: No hemolysis noted. Ordering Provider: SMITH OSPINA Report Released Date/Time: Oct 15, 2023 09:55 AM Reporting Lab: [facility] [address] [place] [address] Performing Lab: [address] [address] [facility] COMPREHEN SIVE METABOLIC PANEL GLUCOSE [MASS/VOLUM E] IN SERUM OR PLASMA 109 mg/dL 72 - 99 10/14 H Specimen Type: PLASMA Comment: No hemolysis noted. Ordering Provider: SMITH OSPINA Report Released Date/Time: Oct 15, 2023 09:55 AM Reporting Lab: [facility] [address] [place] [phone] Performing Lab: [address] [address] [facility] COMPREHEN SIVE METABOLIC PANEL SODIUM [MOLES/VOLU ME] IN SERUM OR PLASMA 141 meq/L 136 - 145 10/14 Specimen Type: PLASMA Comment: No hemolysis noted. Ordering Provider: SMITH OSPINA Report Released Date/Time: Oct 15, 2023 09:55 AM Reporting Lab: [facility] [address] [address] Performing Lab: [facility] [address] [facility] [address] [facility] COMPREHEN SIVE METABOLIC PANEL POTASSIUM [MOLES/VOLU ME] IN SERUM OR PLASMA 5.9 meq/L 3.5 - 5 10/14 H Specimen Type: PLASMA Comment: No hemolysis noted. Ordering Provider: SMITH OSPINA Report Released Date/Time: Oct 15, 2023 09:55 AM Reporting Lab: [address] [address] Performing Lab: [address] [address] [facility] COMPREHEN SIVE METABOLIC PANEL CHLORIDE [MOLES/VOLU ME] IN SERUM OR PLASMA 108 meq/L 98 - 107 10/14 H Specimen Type: PLASMA Comment: No hemolysis noted. Ordering Provider: SMITH OSPIAN Report Released Date/Time: Oct 15, 2023 09:55 AM Reporting Lab: [address] [address] Performing Lab: [place] [address] [address] [facility] COMPREHEN SIVE METABOLIC PANEL CARBON DIOXIDE, TOTAL [MOLES/VOLU ME] IN SERUM OR PLASMA 25 meq/L 22 - 31 10/14 Specimen Type: PLASMA Comment: No hemolysis noted. Ordering Provider: SMITH OSPINA Report Released Date/Time: Oct 15, 2023 09:55 AM Reporting Lab: [address] [address] Performing Lab: [address] [address] [facility] COMPREHEN SIVE METABOLIC PANEL CALCIUM [MASS/VOLUM E] IN SERUM OR PLASMA 10.3 mg/dL 8.4 - 10.4 08/30 /2024 Specimen Type: PLASMA Comment: No hemolysis noted. Ordering Provider: SMITH OSPINA Report Released Date/Time: Oct 15, 2023 09:55 AM Reporting Lab: [facility] [address] [place] [address] Performing Lab: [facility] [address] [place] [address] [facility] COMPREHEN SIVE METABOLIC PANEL PROTEIN [MASS/VOLUM E] IN SERUM OR PLASMA 7.2 g/dL 6 - 8.6 10/14 Specimen Type: PLASMA Comment: No hemolysis noted. Ordering Provider: SMITH OSPINA Report Released Date/Time: Oct 15, 2023 09:55 AM Reporting Lab: [facility] [address] [place] [address] Performing Lab: [address] [address] [place] [address] COMPREHEN SIVE METABOLIC PANEL ALBUMIN [MASS/VOLUM E] IN SERUM OR PLASMA 4.4 g/dL 3.4 - 5 10/14 Specimen Type: PLASMA Comment: No hemolysis noted. Ordering Provider: SMITH OSPINA Report Released Date/Time: Oct 15, 2023 09:55 AM Reporting Lab: [facility] [address] [place] [address] Performing Lab: [facility] [address] [place] [phone] [place] [address] COMPREHEN SIVE METABOLIC PANEL BILIRUBIN.T OTAL [MASS/VOLUM E] IN SERUM OR PLASMA 0.6 mg/dL 0.2 - 1.2 10/14 Specimen Type: PLASMA Comment: No hemolysis noted. Ordering Provider: SMITH OSPINA Report Released Date/Time: Oct 15, 2023 09:55 AM Reporting Lab: [facility] [address] [place] [address] Performing Lab: [facility] [address] [place] [address] [facility] COMPREHEN SIVE METABOLIC PANEL ALKALINE PHOSPHATASE [ENZYMATIC ACTIVITY/VO LUME] IN SERUM OR PLASMA 66 U/L 40 - 150 10/14 Specimen Type: PLASMA Comment: No hemolysis noted. Ordering Provider: SMITH OSPINA Report Released Date/Time: Oct 15, 2023 09:55 AM Reporting Lab: [address] [address] Performing Lab: [address] [id number] [place] [address] COMPREHEN SIVE METABOLIC PANEL ASPARTATE AMINOTRANSF ERASE [ENZYMATIC ACTIVITY/VO LUME] IN SERUM OR PLASMA 16 U/L 5 - 34 10/14 Specimen Type: PLASMA Comment: No hemolysis noted. Ordering Provider: SMITH OSPINA Report Released Date/Time: Oct 15, 2023 09:55 AM Reporting Lab: [address] [phone] Performing Lab: [address] [id number] [place] [address] COMPREHEN SIVE METABOLIC PANEL ALANINE AMINOTRANSF ERASE [ENZYMATIC ACTIVITY/VO LUME] IN SERUM OR PLASMA 12 U/L 8 - 40 10/14 Specimen Type: PLASMA Comment: No hemolysis noted. Ordering Provider: SMITH OSPINA Report Released Date/Time: Oct 15, 2023 09:55 AM Reporting Lab: [address] [phone] Performing Lab: [address] [phone] [facility] COMPREHEN SIVE METABOLIC PANEL GLOMERULAR FILTRATION RATE/1.73 SQ M.PREDICTED [VOLUME RATE/AREA] IN SERUM, PLASMA OR BLOOD BY CREATININE- BASED FORMULA (CKD-EPI 2020) 49.9 60 10/14 Specimen Type: PLASMA Comment: No hemolysis noted. Ordering Provider: SMITH OSPINA Report Released Date/Time: Oct 15, 2023 09:55 AM Reporting Lab: [address] [address] Performing Lab: [address] [phone] [place] [address] TSH (MA-PB) THYROTROPIN [UNITS/VOLU ME] IN SERUM OR PLASMA 2.006 u[IU]/ mL 0.47 - 5 10/14 Specimen Type: SERUM Comment: No hemolysis noted. Ordering Provider: SMITH OSPINA Report Released Date/Time: Oct 15, 2023 09:55 AM Reporting Lab: [place] [phone] Performing Lab: [address] CBC LEUKOCYTES [#/VOLUME] IN BLOOD BY AUTOMATED COUNT 8.1 10*3/u L 3.6 - 11.2 10/14 Specimen Type: BLOOD No comment entered. Ordering Provider: SMITH OSPINA Report Released Date/Time: Oct 15, 2023 09:55 AM Reporting Lab: [address] [address] Performing Lab: [address] [phone] CBC ERYTHROCYTE S [#/VOLUME] IN BLOOD BY AUTOMATED COUNT 4.61 10*6/u L 4.10 - 5.70 10/14 Specimen Type: BLOOD No comment entered. Ordering Provider: SMITH OSPINA Report Released Date/Time: Oct 15, 2023 09:55 AM Reporting Lab: [address] [address] Performing Lab: [place] [id number] CBC HEMOGLOBIN [MASS/VOLUM E] IN BLOOD 15.1 g/dL 13.1 - 16.8 10/14 Specimen Type: BLOOD No comment entered. Ordering Provider: SMITH OSPINA Report Released Date/Time: Oct 15, 2023 09:55 AM Reporting Lab: [address] [address] Performing Lab: [address] [address] [facility] CBC HEMATOCRIT [VOLUME FRACTION] OF BLOOD 46.2 38.2 - 48.4 10/14 Specimen Type: BLOOD No comment entered. Ordering Provider: SMITH OSPINA Report Released Date/Time: Oct 15, 2023 09:55 AM Reporting Lab: [address] [address] Performing Lab: [address] [address] [facility] CBC MCV [ENTITIC VOLUME] BY AUTOMATED COUNT 100.2 fL 80.0 - 100.0 10/14 H Specimen Type: BLOOD No comment entered. Ordering Provider: SMITH OSPINA Report Released Date/Time: Oct 15, 2023 09:55 AM Reporting Lab: [address] [phone] Performing Lab: [address] [address] [facility] CBC MCH [ENTITIC MASS] BY AUTOMATED COUNT 32.8 pg 27.0 - 34.0 10/14 Specimen Type: BLOOD No comment entered. Ordering Provider: SMITH OSPINA Report Released Date/Time: Oct 15, 2023 09:55 AM Reporting Lab: [address] [address] Performing Lab: [address] [address] [facility] CBC MCHC [MASS/VOLUM E] BY AUTOMATED COUNT 32.7 g/dL 33.0 - 36.0 10/14 L Specimen Type: BLOOD No comment entered. Ordering Provider: SMITH OSPINA Report Released Date/Time: Oct 15, 2023 09:55 AM Reporting Lab: [address] [place] [address] Performing Lab: [facility] [address] [place] [phone] [facility] CBC PLATELETS [#/VOLUME] IN BLOOD BY AUTOMATED COUNT 246 10*3/u L 150 - 400 10/14 Specimen Type: BLOOD No comment entered. Ordering Provider: SMITH OSPINA Report Released Date/Time: Oct 15, 2023 09:55 AM Reporting Lab: [facility] [address] [place] [phone] Performing Lab: [address] [address] [facility] CBC PLATELET MEAN VOLUME [ENTITIC VOLUME] IN BLOOD BY AUTOMATED COUNT 9.8 fL 7.5 - 11.2 10/14 Specimen Type: BLOOD No comment entered. Ordering Provider: SMITH OSPINA Report Released Date/Time: Oct 15, 2023 09:55 AM Reporting Lab: [facility] [address] [place] [phone] Performing Lab: [address] [address] [facility] CBC ERYTHROCYTE DISTRIBUTIO N WIDTH [RATIO] BY AUTOMATED COUNT 12.7 11.8 - 15.1 10/14 Specimen Type: BLOOD No comment entered. Ordering Provider: SMITH OSPINA Report Released Date/Time: Oct 15, 2023 09:55 AM Reporting Lab: [facility] [address] [place] [phone] Performing Lab: [facility] [address] [facility] CBC LYMPHOCYTES /100 LEUKOCYTES IN BLOOD BY AUTOMATED COUNT 36 10/14 Specimen Type: BLOOD No comment entered. Ordering Provider: SMITH OSPINA Report Released Date/Time: Oct 15, 2023 09:55 AM Reporting Lab: [facility] [address] [place] [phone] Performing Lab: [facility] [address] [address] [facility] CBC MONOCYTES/1 00 LEUKOCYTES IN BLOOD BY AUTOMATED COUNT 10 10/14 Specimen Type: BLOOD No comment entered. Ordering Provider: SMITH OSPINA Report Released Date/Time: Oct 15, 2023 09:55 AM Reporting Lab: [facility] [address] [place] [phone] Performing Lab: [facility] [address] [place] [phone] [facility] CBC NEUTROPHILS /100 LEUKOCYTES IN BLOOD BY AUTOMATED COUNT 52 10/14 Specimen Type: BLOOD No comment entered. Ordering Provider: SMITH OSPINA Report Released Date/Time: Oct 15, 2023 09:55 AM Reporting Lab: [address] [address] Performing Lab: [address] [address] [facility] CBC EOSINOPHILS /100 LEUKOCYTES IN BLOOD BY AUTOMATED COUNT 10/14 Specimen Type: BLOOD No comment entered. Ordering Provider: SMITH OSPINA Report Released Date/Time: Oct 15, 2023 09:55 AM Reporting Lab: [address] [address] Performing Lab: [address] [address] [facility] CBC BASOPHILS/1 00 LEUKOCYTES IN BLOOD BY AUTOMATED COUNT 1 10/14 Specimen Type: BLOOD No comment entered. Ordering Provider: SMITH OSPINA Report Released Date/Time: Oct 15, 2023 09:55 AM Reporting Lab: [address] [address] Performing Lab: [address] [address] [facility] CBC LYMPHOCYTES [#/VOLUME] IN BLOOD BY AUTOMATED COUNT 2.92 10*3/u L 0.77 - 4.50 10/14 Specimen Type: BLOOD No comment entered. Ordering Provider: SMITH OSPINA Report Released Date/Time: Oct 15, 2023 09:55 AM Reporting Lab: [address] [address] Performing Lab: [address] [address] [facility] CBC MONOCYTES [#/VOLUME] IN BLOOD BY AUTOMATED COUNT 0.77 10*3/u L 0.19 - 0.80 10/14 Specimen Type: BLOOD No comment entered. Ordering Provider: SMITH OSPINA Report Released Date/Time: Oct 15, 2023 09:55 AM Reporting Lab: [address] [address] Performing Lab: [address] [phone] [place] [address] CBC NEUTROPHILS [#/VOLUME] IN BLOOD BY AUTOMATED COUNT 4.25 10*3/u L 2.10 - 8.00 10/14 Specimen Type: BLOOD No comment entered. Ordering Provider: SMITH OSPINA Report Released Date/Time: Oct 15, 2023 09:55 AM Reporting Lab: [address] [address] Performing Lab: [address] [address] [facility] CBC EOSINOPHILS [#/VOLUME] IN BLOOD BY AUTOMATED COUNT 0.11 10*3/u L 0.00 - 0.60 10/14 Specimen Type: BLOOD No comment entered. Ordering Provider: SMITH OSPINA Report Released Date/Time: Oct 15, 2023 09:55 AM Reporting Lab: [address] [address] Performing Lab: [address] [address] [facility] CBC BASOPHILS [#/VOLUME] IN BLOOD BY AUTOMATED COUNT 0.05 10*3/u L 0.00 - 0.20 10/14 Specimen Type: BLOOD No comment entered. Ordering Provider: SMITH OSPINA Report Released Date/Time: Oct 15, 2023 09:55 AM Reporting Lab: [address] [address] Performing Lab: [address] [phone] [place] [address] VITAMIN D, 25-HYDROX Y 25-HYDROXYV ITAMIN D3 [MASS/VOLUM E] IN SERUM OR PLASMA 45.1 ng/mL 30 - 96 10/14 Specimen Type: SERUM No comment entered. Ordering Provider: SMITH OSPINA Report Released Date/Time: Oct 15, 2023 09:55 AM Reporting Lab: [address] [address] Performing Lab: [address] [address] [facility] LIPID PANEL (STL) CHOLESTEROL [MASS/VOLUM E] IN SERUM OR PLASMA 151 mg/dL 0 - 200 10/14 Specimen Type: PLASMA Comment: No hemolysis noted. Ordering Provider: SMITH OSPINA Report Released Date/Time: Oct 15, 2023 09:55 AM Reporting Lab: [address] [address] Performing Lab: [address] [address] [facility] LIPID PANEL (STL) TRIGLYCERID E [MASS/VOLUM E] IN SERUM OR PLASMA 70 mg/dL 0 - 150 10/14 Specimen Type: PLASMA Comment: No hemolysis noted. Ordering Provider: SMITH OSPINA Report Released Date/Time: Oct 15, 2023 09:55 AM Reporting Lab: [address] [address] Performing Lab: [address] [address] [facility] LIPID PANEL (STL) CHOLESTEROL IN LDL [MASS/VOLUM E] IN SERUM OR PLASMA BY CALCULATION 85 mg/dL 10/14 Specimen Type: PLASMA Comment: No hemolysis noted. Ordering Provider: SMITH OSPINA Report Released Date/Time: Oct 15, 2023 09:55 AM Reporting Lab: [place] [phone] Performing Lab: [address] [phone] [place] [address] LIPID PANEL (STL) CHOLESTEROL IN HDL [MASS/VOLUM E] IN SERUM OR PLASMA 52 mg/dL 40 10/14 Specimen Type: PLASMA Comment: No hemolysis noted. Ordering Provider: SMITH OSPINA Report Released Date/Time: Oct 15, 2023 09:55 AM Reporting Lab: [address] [address] Performing Lab: [address] [phone] [place] [address] HGA1C HEMOGLOBIN A1C/HEMOGLO BIN.TOTAL IN BLOOD 5.7 4.0 - 6.0 10/14 Specimen Type: BLOOD No comment entered. Ordering Provider: SMITH OSPINA Report Released Date/Time: Oct 15, 2023 09:55 AM Reporting Lab: [address] [address] Performing Lab: [address] [address] [place] [address] VITAMIN D, 25-HYDROX Y 25-HYDROXYV ITAMIN D3 [MASS/VOLUM E] IN SERUM OR PLASMA 45.2 ng/mL 30 - 10/16 Specimen Type: SERUM Comment: The listed sex of this patient may not be a typical indication for this test. Therefore, reference ranges or interpretiv e criteria listed may not be valid. Clinical correlation suggested. Ordering Provider: RUTHY BOLAND LISA Report Released Date/Time: Mar 27, 2022 10:33 AM Reporting Lab: [facility] [address] [facility] [address] Performing Lab: [facility] [address] [facility] [address] [facility] Vital Signs Combined list of inpatient and outpatient Vital Signs from Department of Defense and Veterans Affairs, ranging from 12 months to all on record, depending upon the facility. Vital Sign Value Date Comments Source SYSTOLIC BLOOD PRESSURE 131 05/30/2024 14:16:16 [facility] DIASTOLIC BLOOD PRESSURE 80 05/30/2024 14:16:16 [facility] PULSE OXIMETRY 97 05/30/2024 14:16:16 [facility] PULSE 65 05/30/2024 14:16:16 [facility] SYSTOLIC BLOOD PRESSURE 122 04/21/2024 13:19:03 [facility] DIASTOLIC BLOOD PRESSURE 73 04/21/2024 13:19:03 [facility] PULSE OXIMETRY 95 04/21/2024 13:19:03 [facility] WEIGHT 189.6 04/21/2024 13:19:03 [facility] BMI 32 kg/m2 04/21/2024 13:19:03 [facility] PAIN 0 04/21/2024 13:19:03 [facility] TEMPERATURE 97.8 04/21/2024 13:19:03 [facility] PULSE 120 04/21/2024 13:19:03 [facility] RESPIRATION 18 04/21/2024 13:19:03 [facility] SYSTOLIC BLOOD PRESSURE 123 01/21/2024 13:35:13 [facility] DIASTOLIC BLOOD PRESSURE 70 01/21/2024 13:35:13 [facility] PULSE OXIMETRY 95 01/21/2024 13:35:13 [facility] WEIGHT 193 01/21/2024 13:35:13 [facility] BMI 32 kg/m2 01/21/2024 13:35:13 [facility] TEMPERATURE 97.9 01/21/2024 13:35:13 [facility] PULSE 97 01/21/2024 13:35:13 [facility] RESPIRATION 18 01/21/2024 13:35:13 [facility] SYSTOLIC BLOOD PRESSURE 102 10/15/2023 09:30:51 [facility] DIASTOLIC BLOOD PRESSURE 62 10/15/2023 09:30:51 [facility] PULSE OXIMETRY 97 10/15/2023 09:30:51 [facility] WEIGHT 186 10/15/2023 09:30:51 [facility] BMI 31 kg/m2 10/15/2023 09:30:51 [facility] PAIN 0 10/15/2023 09:30:51 [facility] HEIGHT 65 10/15/2023 09:30:51 [facility] TEMPERATURE 99.1 10/15/2023 09:30:51 [facility] PULSE 73 10/15/2023 09:30:51 [facility] RESPIRATION 20 10/15/2023 09:30:51 [facility] Encounters Combined list of: 1) Encounters from Department of Veterans Affairs facilities going backup to the last 18 months, not all VA inpatient encounters are included; 2) Encounters from the Department of Defense facilities going backup to 280 months. Location Location Details Encounter Type Encounter Number Reason For Visit Attending Provider ADM Date DC Date Status Disposition Source [facility] Outpatient Encounter [id number] 04/01 [facility] [place]UNIZAT[place] ADMIN [id number] Diagnos is: ICD-10- CM Z23 Encount er for immuniz CARLOS Lepe 05/03 [facility] Outpatient Encounter [id number] CARLOS ÁLVAREZ M 10/13 [facility] O/P EST MOD 30 MIN [id number] Diagnos is: ICD-10- CM I10 Essenti al (primar y) hyperte beba BENJAMINRENE SMITH Leo 10/14 [facility] PRO PHONE CALL 21-30 MIN [id number] Diagnos is: ICD-10- CM I10 Essenti al (primar y) hyperte RUTHANN Rapp 11/14 [facility] Outpatient Encounter [id number] 01/05 [facility] Outpatient Encounter [id number] RUTHANN RICHARDSNO M 01/06 [facility] Outpatient Encounter [id number] 01/06 [facility] Outpatient Encounter [id number] 01/13 [facility] Outpatient Encounter [id number] Diagnos is: ICD-10- CM U07.1 COVID-1 9 Hasmukh DOLAN 01/13 [facility] 3D RENDER W/INTRP POSTPROCES [id number] Diagnos is: ICD-10- CM I48.91 Unspeci fied atrial fibrill ation OU,JIAFU 01/20 [facility] OFF[facility] O/P EST HI 40 MIN [id number] Diagnos is: ICD-10- CM I10 Essenti al (primar y) hyperte nsion SA KASSIDY REY M 01/20 [facility] Outpatient Encounter [id number] 01/20 [facility] Outpatient Encounter [id number] SA KRISSY KASSIDY 01/23 [facility] EXT ECG>7D<15D REV&INTERP J [id number] Diagnos is: ICD-10- CM I48.91 Unspeci fied atrial fibrill ation RIO MCNEAL 01/27 [facility] Outpatient Encounter [id number] 02/02 [facility] OFFICE O/P EST MOD 30 MIN [id number] Diagnos is: ICD-10- CM R94.31 Abnorma l electro cardiog katie [ECG] [EKG] LÁZARO LACEY 02/02 [facility] Outpatient Encounter [id number] 02/02 [facility] Outpatient Encounter [id number] 04/21 [facility] OFFICE O/P EST HI 40 MIN [id number] Diagnos is: ICD-10- CM R94.31 Abnorma l electro cardiog katie [ECG] [EKG] SA KASSIDY REY 04/21 [facility] Outpatient Encounter [id number] Diagnos is: ICD-10- CM R00.0 Tachyca rdia, unspeci fied PANDA,NIKH [place] C 04/26 [facility] Outpatient Encounter [id number] 05/26 [facility] OFF/OP CONSLTJ NEW/EST HI 55 [id number] Diagnos is: ICD-10- CM R00.0 Tachyca rdia, unspeci fied PANDA,NIKH IL C 05/30 [facility] Social History Combined list of available smoking, tobacco, and other social history from Department of Defense and Veterans Affairs facilities. Social History Type Response Date Comment Sourc e Tobacco smoking status RIIS [facility] FORMER USER 05/04/2023 [facility] History of tobacco use VA-TOBACCO QUIT 15 YRS OR MORE 05/04/2023 [facility] History of tobacco use VA-TOBACCO FORMER USER 03/26/2022 [facility] History of tobacco use VA-TOBACCO FORMER USER 12/13/2020 [facility] History of tobacco use VA-TOBACCO FORMER USER 12/15/2019 [facility] History of tobacco use QUIT TOBACCO >7 YEARS AGO 11/13/2009 [facility] Plan of Care List of future care activities from Department of Veterans Affairs facilities. Additional future care activities may be listed in the Assessment and Plan section. Date/Time Care Activity Care Activity Detail Facili ty 10/17/2024 AMBULATORY - NONE [facility]ONE [facility]
--- OUTSIDE RECORDS SUMMARY | 2024-09-15 10:39 | XMS_ITS | Encounter Summary ---
Author Name [facility] [place] Organization [facility] [place] Address [address] [place] [address] Care Team Providers Care Almond Paste Mixer Name Role Phone CAMERON DELGADO Primary Care [...] Rice's Name Patient's Relationship to Policy [facility]IC[facility] ADVANTAGE [facility] (WNR) Feb 15, 2023 [id number] FAREED VIEYRA OLD PATIENT [employer] MCR (WNR) MEDICARE ADVANTAGE [facility] (WNR) Feb 15, 2023 [id number] FAREED VIEYRA OLD PATIENT Selected Encounter This section includes the information on record at [place] for the Encounter. Date/Time Encounter Type Encounter Description Reason Provider Source Apr 21, 2024 02:00 PM OFFICE O/P EST HI 40 MIN CARDIOLOGY ICD-10-CM R94.31 Abnormal electrocardiogram [ECG] [EKG] MISAEL REY IHDanielle Encounter Template Text not used by [place] Assessments - Encounter Diagnoses This section includes the primary and secondary diagnoses documented for the Encounter. Date/Time Primary/Secondary Diagnosis Diagnosis Name Provider Source Apr 21, 2024 04:38 PM PRIMARY Abnormal electrocardiogram [ECG] [EKG] FELY REY [facility] Apr 21, 2024 04:38 PM SECONDARY Essential (primary) hypertension FELY REY [facility] Apr 21, 2024 04:38 PM SECONDARY Other hyperlipidemia FELY REY [facility] Apr 21, 2024 04:38 PM SECONDARY Paroxysmal tachycardia, unspecified FELY REY [facility] Plan of Treatment: Future Appointments (+ 6 months) and Future Tests (+/- 45 days) The Plan of Treatment section includes future care activities for the patient from all [place] [facility]. This section includes future appointments and future orders which are active, pending or scheduled. Future Appointments This section includes appointments that were scheduled to occur 6 months from the date of the Encounter, up to a maximum of 20 appointments. The data comes from all [place] treatment facilities. Appointment Date/Time Appointment Type Appointme nt Facility Name May 30, 2024 02:00 PM AMBULATORY - MEDICINE [facility] Oct 17, 2024 10:30 AM AMBULATORY - NONE [facility] Lab Results: +/- 30 days of the encounter This section includes the Chemistry and Hematology Lab Results on record with [place] for the patient. Radiology Reports and Pathology Reports are provided separately, in subsequent sections. Lab Results This section contains the Chemistry/Hematology Results that were resulted 30 days before or 30 daysafter the date of the Encounter. Date/Time Source Result Type Result - Unit Interpretation Reference Range Specimen Type Comment Apr 26, 2024 09:20 AM [facility] LIPID PANEL (STL) PLASMA Specimen Type: PLASMA No comment entered. Ordering Provider: RANDY REY Report Released Date/Time: Apr 21, 2024 02:01 PM Reporting Lab: [facility] [address] [facility] [address] Performing Lab: [address] [address] CHOLESTEROL 115 mg/dL 0-200 TRIGLYCERIDE 66 mg/dL 0-150 CALCULATED LDL 51 mg/dL HDL(New) 51 mg/dL >40 Apr 26, 2024 09:20 AM [facility] HEPATIC FUNTION PANEL (STL) PLASMA Specimen Ty pe: PLASMA No comment entered. Ordering Provider: RANDY REY Report Released Date/Time: Apr 21, 2024 04:14 PM Reporting Lab: [facility] [address] [facility] [address] Performing Lab: [facility] [address] [address] PROTEIN 7.2 g/dL 6-8.6 ALBUMIN 4.2 g/dL 3.4-5 TOTAL BILIRUBIN 0.7 mg/dL 0.2-1.2 ALKALINE PHOSPHATASE 67 U/L 40-150 AST/SGOT 20 U/L 5-34 ALT/SGPT 13 U/L 8-40 CONJ. BILIRUBIN 0.3 mg/dL 0-0.5 Vital Signs: All taken on the encounter date This section contains inpatient and outpatient Vital Signs collected on the date of the Encounter. Date/Time Temperature Pulse Blood Pressure Respiratory Rate SP02 Pain Height Weight Body Mass Index Source Apr 21, 2024 01:19 PM 97.8 120 122/73 18 95 0 189.6 32 [facility] Social History: Smoking Status (Most current) and Tobacco Use (All prior to encounter date) This section includes the most current, and the historical, smoking and tobacco- related health factors from the [place] facility where the Encounter took place. Current Smoking Status This section includes the most current smoking, or tobacco-related health factor, from the [place] facility where the Encounter took place. Date/Time Current Smoking Status Comment Marcelle bailey Mar 26, 2022 09:19 AM VA-TOBACCO FORMER USER [facility] Tobacco Use History This section includes a history of the smoking, or tobacco-related health factors, that were collected on or before the date of the Encounter. The data comes from the [place] facility where the Encounter took place. Date/Time Smoking Status/Tobacco Use Comment Cynthia fregoso Mar 26, 2022 09:19 AM [place]-TOBACCO QUIT 15 YRS OR MORE [facility] Encounter Notes: All associated encounter notes This section contains the clinical notes associated to the Encounter. Date/Time Encounter Note(s) Provider Source Apr 21, 2024 01:55 PM CARDIOLOGY OUTPATI ENT NOTE: LOCAL TITLE: CARDIOLOGY OUTPATIENT FOLLOW UP [facility] STANDARD TITLE: CARDIOLOGY OUTPATIENT NOTE DATE OF NOTE: APR 21, 2024@13:55 ENTRY DATE: APR 21, 2024@13:55:32 AUTHOR: RANDY REYIGNER: URGENCY: STATUS: COMPLETED CARDIOLOGY CLINIC RETURN OUTPATIENT VISIT CHIEF COMPLAINT: Fatigue and palpitations SUBJECTIVE: 78 yo M with hypertension, dyslipidemia, abnormal ECG (RBBB, LAFB, PVCs) referred for outpatient visit for possible atrial fibrillation. Patient got flu/COVID vaccine in November. Had PCP visit 12/24/2023 with ectopic beats. ECG at that time revealing NSR, with RBBB, LAFB with nonspecific ST-T changes with ST elevations in inferior leads and PVCs. He was told that this ECG represents atrial fibrillation (I personally reviewed a copy of this ECG and it does not represent atrial fibrillation). Discussing symptoms, he denies any chest pains. He has good exertional tolerance that is stable, but perhaps a little less over the past couple years--this is consistent since our last visit. We did review his recent stress testing which had ECG negative for ischemic changes. There was an inferior perfusion defect thought to represent attenuation due to improvement with prone imaging. He still has some fatigue, but with the poor weather, he has been driving a lot and not as active out as usual. He reports occasional palpitations--we reviewed the Holter and got an ECG today and it appears he may be in an atrial tachycardia at 125 bpm. He is minimally symptomatic. No LH/syncope. No heart failure symptoms, but occasional swelling in the L ankle if on his feet, but has had 4 hip surgeries. ROS: 10 Point review of systems negative except as noted in the subjective. PMH: 1) Past history of procedure 2) HTN - Hypertension ([facility] [id number]) 3) Obesity ([facility] [id number]) 4) History of nephrolithiasis 5) History of chronic renal impairment 6) Allergic Rhinitis ([facility] [id number]) 7) Vitamin D Deficiency ([facility] [id number]) 8) Impaired glucose tolerance 9) Erectile Dysfunction ([facility] [id number]) 10) Hyperlipidemia 11) Abnormal ECG All cardiac medications were reviewed with the patient and reconciled as noted by med list below. Medications: Active Outpatient Medications (including Supplies): Active Outpatient Medications Status 1) LISINOPRIL 40MG TAB TAKE ONE-HALF TABLET BY MOUTH ONCE A DAY ACTIVE *NOTE DOSE DECREASE* Indication: FOR HIGH BLOOD PRESSURE 2) ROSUVASTATIN CA 10MG TAB TAKE ONE-HALF TABLET BY MOUTH EVERY ACTIVE EVENING Indication: FOR HIGH CHOLESTEROL 3) SILDENAFIL CITRATE 100MG TAB TAKE ONE-HALF TABLET BY MOUTH ACTIVE ONE HOUR PRIOR TO SEXUAL ACTIVITY (TAKE 60 MINUTES PRIOR TO SEXUAL ACTIVITY) - LIMIT 6 DOSES PER 30 DAYS Indication: FOR ERECTILE DYSFUNCTION Active Non-VA Medications Status 1) Non-VA ASPIRIN 81MG EC TAB 81MG BY MOUTH ONCE A DAY ACTIVE 2) Non-VA BETAMETHASONE DIPROPIONATE 0.05% CREAM SPARINGLY TO ACTIVE AFFECTED AREA(S) THREE TIMES A DAY NEEDED 3) Non-VA CETIRIZINE HCL 10MG TAB 10MG BY MOUTH ONCE A DAY ACTIVE NEEDED 4) Non-VA CHOLECALCIF 25MCG (D3-1,000UNIT) TAB 75MCG BY MOUTH ACTIVE ONCE A DAY 7 Total Medications OBJECTIVE: Vitals: 97.8 F [36.6 C] (04/21/2024 13:19)120 (04/21/2024 13:19)122/73 (04/21/2024 13:19)18 (04/21/2024 13:19) Measurement DT POx (L/MIN)(%) 04/21/2024 13:19 95 01/21/2024 13:35 95 10/15/2023 09:30 97 10/16/2022 09:25 95 Gen: Alert, oriented. NAD. Neck: No JVD. Carotids: No carotid bruits. CV: regular, tachycardic Lungs: Clear bilaterally Abd: Soft, nontender. Ext: No edema. Skin: No rashes. LABS: Chol: CHOLESTEROL 151 mg/dL 10/15/2023 10:00 LDL: ____ CALCULATED LDL 85 mg/dL 10/15/2023 10:00 ____ HDL: 52 mg/dL (10/15/23 10:00) Tri mg/dL (10/15/23 10:00) Na: SODIUM 142 mEq/L 10/28/2023 09:28 K: POTASSIUM 4.3 mEq/L 10/28/2023 09:28 BUN: 17.1 mg/dL (10/28/23 09:28) Cr: CREATININE 0.90 mg/dL 10/28/2023 09:28 Glucose: GLUCOSE 98 mg/dL 10/28/2023 09:28 ALT: 16 U/L (10/15/23 10:00) AST: 12 U/L (10/15/23 10:00) WBC: 8.1 10*3/uL (10/15/23 10:00) HCT: 46.2 % (10/15/23 10:00) PLT: PLT 246 10*3/uL 10/15/2023 10:00 INR: No INR EO data found BNP: No BRAIN NATRIURETIC PEPTIDE data found A1c: HGA1C 5.7 % 10/15/2023 10:00 PAST CARDIAC WORKUP/TREATMENT: Cath: NA Stress Test 01/2024: Reviewed with patient today. [...] 3. Normal LVEF of 62%. ECHO 01/2024: Reviewed from today. Normal systolic function, biatrial enlargement, no significant valvular disease. Holter 01/27/2025: Reviewed results in clinic today: Rhythm Interpretation: 1) The predominant rhythm was Sinus with Frequent Ventricular Ectopy,runs of bigeminy,trigeminy/couplets 2) there were 5 patient triggered events, no symptoms specified, 1 seen with ventricular ectopy, 4 seen with sinus rhythm/sinus tachycardia 3) Bradycardia <1% Controlled 97% Tachycardia 3% Clinical Significance: Normal sinus rhythm with RBBB at baseline 5 patient triggers but no symptoms reported. These were associated with sinus tachycardia, PVC. 5% PVC burden including NSVT's longest upto 3 beats. Short runs of SVT, longest episode lasting 165 beats at 135 bpm No long pauses. EKG in clinic 04/21/2024 with atrial tachycardia vs sinus tachycardia, RBBB, LAFB, LVH with nonspecific ST-T change and PRWP. ASSESSMET AND PLAN: 1. Abnormal ECG He has RBBB, LAFB. No syncope. Stress negative for ischemia. Will continue to monitor. 2. Hypertension BP controlled. Continue lisinopril 20 mg daily. Recent labs stable. 3. Dyslipidemia 10-year estimated risk 26%. Tolerating rosuvastatin 5 mg daily. Will recheck fasting lipids and LFTs next week. Ordered labs for next week--he will go to [place] outpatient clinic near [place], [place] to have drawn (his preference). 4. PVC/short NSVT Asymptomatic. Normal EF. 5% burden on Holter. Start metoprolol succinate 25 mg daily. 5. Palpitations Holter with frequent A tach/SVT. Sustained today without palpitations. ECG likely a tach. Discussed with EP who will see in clinic for EPS/ablation consideration with likely Holter reassessment after now starting BB. Appreciate EP care. RTC: 6 mo. Time expended on this encounter, minutes including chart review: 50 minutes RTC: All patients are counseled on the risks [...] completed, the results will be found in [facility]. # HEALTH PROMOTION/HEALTH MAINTENANCE & EDUCATION DISEASE: Discussed treatment options & counseled on exacerbating factors. # DIAGNOSTIC TESTING AND LABORATORY DATA: Pertinent labs and diagnostic tests (both normal and abnormal) are included above and were reviewed and discussed with the patient within 7-days of the test and during this visit. - DISEASE: Coordinated care; discussed treatment options, & counseled on exacerbating factors. - Encouraged participation in regular [...] are considered for beta blockers and aspirin contraindicated due to intolerance/allergy, hypotension, bradycardia, or [...] as directed by the PCP (primary provider). Life Sustaining Treatment Orders /es/ RANDY REY MD STAFF PHYSICIAN Signed: 04/21/2024 16:38 RANDY REY [facility]
--- OUTSIDE RECORDS SUMMARY | 2024-09-15 10:39 | XMS_ITS | Encounter Summary ---
Author Name [facility] [place] Organization [facility] [place] Address [address] [place] [address] Care Team Providers Care Human Resources Coordinator Name Role Phone CAMERON DELGADO Primary Care [...] Name Patient's Relationship to Policy Rice [employer] [facility] (WNR) MEDICARE ADVANTAGE [facility] (WNR) Feb 15, 2023 [id number] FAREED MOCK OLD PATIENT [employer] MCR (WNR) MEDICARE ADVANTAGE [facility] (WNR) Feb 15, 2023 [id number] FAREED MOCK OLD PATIENT Selected Encounter This section includes the information on record at [place] for the Encounter. Date/Time Encounter Type Encounter Description Reason Pro vider Source Jan 07, 2024 11:25 AM Outpatient Encounter ADMIN PAT ACTIVTIES (MASNONCT) IHE Encounter Template Text not used by [place] Plan of Treatment: Future Appointments (+ 6 months) and Future Tests (+/- 45 days) The Plan of Treatment section includes future care activities for the patient from all [facility] treatment[facility]. This section includes future appointments and future orders which are active, pending or scheduled. Future Appointments This section includes appointments that were scheduled to occur 6 months from the date of the Encounter, up to a maximum of 20 appointments. The data comes from all [facility]. Appointment Date/Time Appointment Type Appointme nt Facility Name Jan 21, 2024 11:00 AM AMBULATORY - MEDICINE [facility] Jan 21, 2024 02:00 PM AMBULATORY MEDICINE [facility] Feb 03, 2024 09:30 AM AMBULATORY - MEDICINE [facility] Feb 03, 2024 10:30 AM AMBULATORY - MEDICINE [facility] Apr 21, 2024 02:00 PM AMBULATORY - MEDICINE [facility] May 30, 2024 02:00 PM AMBULATORY - MEDICINE [facility] Social History: Smoking Status (Most current) and Tobacco Use (All prior to encounter date) This section includes the most current, and the historical, smoking and tobacco- related health factors from the [place] facility where the Encounter took place. Current Smoking Status This section includes the most current smoking, or tobacco-related health factor, from the [place] facility where the Encounter took place. Date/Time Current Smoking Status Comment Facil ity Mar 26, 2022 09:19 [facility] Tobacco Use History This section includes a history of the smoking, or tobacco-related health factors, that were collected on or before the date of the Encounter. The data comes from the [place] facility where the Encounter took place. Date/Time Smoking Status/Tobacco Use Comment F acility Mar 26, 2022 09:19 AM [facility] Radiology Reports: +/- 30 days of the encounter Radiology Reports For cases when an order for radiology services may have been completed prior to the date of the Encounter, the report list includes the Radiology Reports that were completed up to 30 days before dateof the Encounter. For cases when an order for radiology services may have been completed after the date of the Encounter, the report list also includes the Radiology Reports that were completed up to30 days after date of the Encounter. The data comes from all [facility]. Date/Time Radiology Report Provider Source Feb 03, 2024 08:52 AM NM MYOCARDIAL P SP ECT STRESS/REST-P: YASIR MOCK [id number] M Exm Date: FEB 03, 2024@08:52 Req Phys: RANDY REY Loc: [facility] 5 (Req'g Loc) Img Loc: [facility] Service: Unknown [facility], [address] [place] [address] (Case [id number] COMPLETE) NM MYOCARDIAL PERF SPECT STRESS/R(NM Detailed) CPT:39369 Reason for Study: Assess Suspected or Known CAD, Pre-op Assessment (Case 3219 COMPLETE) TC-99M TETROFOSMIN (MYOVIEW) (NM Detailed) CPT:A9502 (Case 3220 COMPLETE) TC-99M TETROFOSMIN (MYOVIEW), PE(NM Detailed) CPT:A9502 (Case 3221 COMPLETE) NON-HEU TC-99M ADD-ON PER STUDY D(NM Detailed) CPT:Q9969 Clinical History: Assess Suspected or Known CAD, Pre-op Assessment Report Status: Verified Date Reported: FEB 03, 2024 Date Verified: FEB 03, 2024 Business Associate E-Sig:/ES/Jacquie Sanchez MD,PhD Report: PATIENT NAME: YASIR MOCK CASE #: [id number], [id number], [id number], [id number] EXAMINATION: Rest/Treadmill Stress Gated SPECT Myocardial Imaging HISTORY: 78-year-old male with history of hypertension, hyperlipidemia and abnormal EKG (see Cardiology note from 01/21/2024)who is undergoing evaluation for CAD. TECHNIQUE: A dose of 11.8 mCi Tc-99m Myoview was administered IV at rest, and SPECT myocardial imaging was performed in the supine position. Treadmill exercise was performed according to the modified ACIP protocol under physician supervision. The patient exercised for 10 minutes and 11 seconds, achieved 5.8 METs, and achieved 106% of the patient's maximum predicted heart rate. Cardiology service will report on EKG findings and the patient's stress tolerance. A dose of 32.9 mCi Tc-99m Myoview was administered IV at peak stress, and gated SPECT myocardial imaging was performed in the supine position. Non-gated prone stress imaging was also performed. COMPARISON: There is no prior NM Myocardial Perf SPECT Stress/Rest available for comparison. FINDINGS: The image quality is technically adequate despite subdiaphragmatic activity located near the heart. There is no significant patient motion. The left ventricle is normal in size at stress and rest. Normal TID ratio. The stress SPECT images show small area of severely decreased counts in the apex extending into the distal inferior wall with mild improvement on the rest SPECT images and appears better on prone images. Also, the stress SPECT images show a medium-sized area of moderately decreased counts in the proximal to mid inferior wall, with mild improvement on rest SPECT images. Prone images show normalization of counts in the proximal to mid inferior wall. The gated images demonstrate normal myocardial thickening in the apex and near normal myocardial thickening in the inferior wall. There is normal wall motion. The calculated left ventricular ejection fraction is 62%. Impression: 1. Small severe partially reversible defect in [...] of ischemia. 3. Normal LVEF of 62%. Diagnostic code: 1001. Primary Interpreting Staff: Jacquie Sanchez MD,PhD, Nuclear Medicine Physician (Business Associate) /JACQUIE PARADA [facility] Encounter Notes: All associated encounter notes This section contains the clinical notes associated to the Encounter. Date/Time Encounter Note(s) Provider Source Jan 07, 2024 11:25 AM PHYSICIAN LETTERS: LOCAL TITLE: PHYSICIAN LETTERS STANDARD TITLE: PHYSICIAN LETTERS DATE OF NOTE: JAN 07, 2024@11:25 ENTRY DATE: JAN 07, 2024@11:25:43 AUTHOR: JUNIOR COATS EXP COSIGNER: URGENCY: STATUS: COMPLETED [facility] [address] [place] [address] YASIR MOCK [address] [place], [place] [address] Dear Yasir Mock: Thank you for choosing the [facility] as your primary choice for health care. A home heart monitor has been ordered for you, this will be sent to you by [facility] in [facility], via [employer]. Please plan to wear the monitor for the prescribed time period of 14 days. After you complete the monitoring period, please send the monitor back via [employer] in the pre-addressed/pre-paid box it came in. DO NOT GIVE TO THE POST OFFICE UNLESS THAT IS SPECIFIED ON THE RETURN LABEL [facility] will generate a report, which will be reviewed by a [place] Aerophysicist, results will be uploaded to your record. [facility] contact number is [phone] press 1 then 2 for help 24 hours/day You may receive a text asking you to confirm the appt, please answer yes. Please call us at [phone], extension [phone] [facility] [phone] if you have any questions. If you would like help applying or removing your monitor you are welcome to come to either the [facility] EKG office 0730-1600pm [facility] 1 room B206 (next to Blood Draw)ext. [phone] or the [facility] EKG office [facility] [phone] [facility] 55 Room 2C-124 Nurse Practitioner Clinic ext. [phone] Your good health is important to us. Thank you for your service! Sincerely, Junior Coats Medical Director General-EKG [facility] [place] [facility]
== END 2024-09-15 10:34 | disposition home or self-care (01) ==
LOC: CHSIMG 10:36
PROVIDERS: PCP Internal Medicine; Visit Provider Internal Medicine
DX: S69.91XA Unspecified injury of right wrist, hand and finger(s), initial encounter (principal); M19.031 Primary osteoarthritis, right wrist; M11.231 Other chondrocalcinosis, right wrist
CPT/HCPCS: 73110; 73130